=== PATIENT | female | born 1970 | race Caucasian/White ===

== ENCOUNTER → 2016-07-14 | Outpatient (CLI) | payer BC, OTHER | LOC: RAD 11:49 | DX: R07.9 Chest pain, unspecified (principal) ==

== ENCOUNTER → 2017-09-08 | Outpatient (CLI) | payer BC, OTHER | LOC: RAD 09-07 02:13 | DX: Z12.31 Encounter for screening mammogram for malignant neoplasm of breast (principal) ==

== ENCOUNTER → 2018-12-20 | Outpatient (CLI) | payer OTHER | LOC: BC 14:12 | DX: Z12.31 Encounter for screening mammogram for malignant neoplasm of breast (principal) ==

== ENCOUNTER → 2018-12-24 | Outpatient (CLI) | payer OTHER | LOC: ULTRA 11:15 | DX: N63.10 Unspecified lump in the right breast, unspecified quadrant (principal) ==